=== PATIENT | female | born 1985 | race American Indian/Alaskan Native ===

== ENCOUNTER 2016-09-28 13:03 | Emergency (ER) | payer SELFPAY ==
[2016-09-28 13:15] VITALS: BP 100/66
[2016-09-28] MEDS ORDERED: BICILLIN L-A IM ONE (13:57)
--- NOTE | 2016-09-28 14:07 | Emergency Department Report ---
ED ENT HPI - General Chief complaint: Sore Throat Stated complaint: SORE THROAT Time Seen by Provider: 09/28/16 13:52 Source: patient Mode of arrival: Ambulatory Limitations: No Limitations - History of Present Illness Initial comments: PT c/o sore throat x 3 days. PT states the last time she was sick with strep throat, she felt like this. pt does report strep throat exposure. MD complaint: sore throat Onset/Timin -: Gradual, days(s) Location: throat Severity: severe Severity scale (0 -10): 8 Quality: sharp Consistency: constant Improves with: none Worsens with: swallowing, eating Associated Symptoms: pain with swallowing, sore throat. denies: fever, cough - Related Data Home Medications Medication Instructions Recorded Confirmed Last Taken No Known Home Medications [No 09/28/16 09/28/16 Unknown Reported Home Medications] Allergies Allergy/AdvReac Type Severity Reaction Status Date / Time No Known Allergies Allergy Verified 09/28/16 13:09 ED Dental HPI - General Chief complaint: Sore Throat Stated complaint: SORE THROAT Time Seen by Provider: 09/28/16 13:52 Source: patient Mode of arrival: Ambulatory Limitations: No Limitations - Related Data Home Medications Medication Instructions Recorded Confirmed Last Taken No Known Home Medications [No 09/28/16 09/28/16 Unknown Reported Home Medications] Allergies Allergy/AdvReac Type Severity Reaction Status Date / Time No Known Allergies Allergy Verified 09/28/16 13:09 ED Review of Systems ROS: Stated complaint: SORE THROAT Other details as noted in HPI Constitutional: denies: chills, fever ENT: ear pain (L ear pain ) Respiratory: denies: cough Gastrointestinal: denies: nausea, vomiting Genitourinary: denies: abnormal menses ED Past Medical Hx - Past Medical History Previous Medical History?: No - Surgical History Past Surgical History?: No - Social History Smoking Status: Never Smoker Substance Use Type: None - Medications Home Medications: Home Medications Medication Instructions Recorded Confirmed Last Taken Type No Known Home Medications [No 09/28/16 09/28/16 Unknown History Reported Home Medications] ED Physical Exam - General Limitations: No Limitations General appearance: alert, in no apparent distress - Head Head exam: Present: atraumatic, normocephalic, normal inspection - Eye Eye exam: Present: normal appearance, PERRL, EOMI. Absent: conjunctival injection - ENT ENT exam: Present: mucous membranes moist, TM's normal bilaterally, normal external ear exam - Expanded ENT Exam Expanded Throat exam: Positive: tonsillar erythema, tonsillomegaly. Negative: tonsillar exudate, R peritonsillar mass, L peritonsillar mass - Neck Neck exam: Present: normal inspection, tenderness, full ROM, lymphadenopathy ( ant cervical ) - Respiratory Respiratory exam: Present: normal lung sounds bilaterally. Absent: respiratory distress - Cardiovascular Cardiovascular Exam: Present: normal rhythm, tachycardia - Extremities Exam Extremities exam: Present: normal inspection, full ROM - Back Exam Back exam: Present: normal inspection, full ROM - Neurological Exam Neurological exam: Present: alert, oriented X3, normal gait - Psychiatric Psychiatric exam: Present: normal affect, normal mood - Skin Skin exam: Present: warm, dry, intact, normal color ED Course Vital Signs 09/28/16 09/28/16 13:11 14:10 Temperature 99.2 F Pulse Rate 119 H Respiratory 18 16 Rate Blood Pressure 100/66 O2 Sat by Pulse 100 Oximetry - Reevaluation(s) Reevaluation #1: 09/28/16 14:10 PT aware of lab result. PT requesting antibiotic shot. - Pulse Oximetry Interpretation Digit-Finger Initial Pulse Oximetry Readin Actions Taken: none ED Medical Decision Making - Differential Diagnosis viral uri, strep pharyngitis Critical Care Time: No Critical care attestation.: If time is entered above; I have spent that time in minutes in the direct care of this critically ill patient, excluding procedure time. ED Disposition Clinical Impression: Strep pharyngitis Disposition: DISCHARGED TO HOME OR SELFCARE Is pt being admited?: No Does the pt Need Aspirin: No Condition: Stable Instructions: Strep Throat (ED) Additional Instructions: Rest, increase fluids Return to ED if worsening or concerns change your toothbrush Referrals: [facility] [Outside] - 3-5 Days [facility] [Outside] - 3-5 Days PRIMARY CAREMD [Primary Care Provider] - 3-5 Days KLEVER NUÑEZ MD [Staff Physician] - 3-5 Days Time of Disposition: 14:15
[2016-09-28] MEDS ORDERED: MOTRIN PO ONE (14:08)
== END 2016-09-28 14:41 | disposition home or self-care (01) ==
LOC: ED 13:03
DX: J02.0 Streptococcal pharyngitis (principal)
CPT/HCPCS: 87430; 96372; 99282; J0561

== ENCOUNTER 2017-11-26 16:26 | Emergency (ER) | payer SELFPAY ==
[2017-11-26 17:59] LABS: Bilirubin,Urine NEG (Negative); Blood,Urine NEG (Negative); Color,Urine Yellow (Yellow); Protein,Urine <15 mg/dL mg/dL (Negative); Urobilinogen,Urine < 2.0 mg/dL (<2.0)
[2017-11-26 18:01] LABS: HCG Qualitative,Urine Negative (Negative)
[2017-11-26 19:39] LABS: Alanine Aminotransferase 10 units/L (7-56); Albumin 4.7 g/dL (3.9-5); BUN/Creatinine Ratio 12; Blood Urea Nitrogen 6 mg/dL (7-17); Calcium 9.5 mg/dL (8.4-10.2); Hemolysis Index 12
[2017-11-26 19:41] LABS: Basophils % (Auto) 0.4 % (0.0-1.8); Eosinophils # (Auto) 0.1 K/mm3 (0.0-0.4); Eosinophils % (Auto) 1.5 % (0.0-4.3); Hematocrit 38.2 % (30.3-42.9); Hemoglobin 12.7 gm/dl (10.1-14.3); Lymphocytes # (Auto) 2.2 K/mm3 (1.2-5.4); Lymphocytes % (Auto) 41.8 % (13.4-35.0); Mean Corpuscular HGB Conc 33 % (30-34); Mean Corpuscular Hemoglobin 32 pg (28-32); Mean Corpuscular Volume 97 fl (79-97); Monocytes # (Auto) 0.3 K/mm3 (0.0-0.8); Monocytes % (Auto) 5.3 % (0.0-7.3); Platelet Count 239 K/mm3 (140-440); Red Blood Count 3.95 M/mm3 (3.65-5.03); Red Cell Distribution Width 14.4 % (13.2-15.2)
--- NOTE | 2017-11-26 21:10 | Emergency Department Report ---
ED Abdominal Pain HPI - General Chief Complaint: Abdominal Pain Stated Complaint: ABD PAIN Time Seen by Provider: 11/26/17 21:09 Source: patient, RN notes reviewed Mode of arrival: Ambulatory Limitations: No Limitations - History of Present Illness Initial Comments: This is a 31-year-old female, unknown to this provider previously, does not have a local primary care doctor, denies chronic medical conditions and history of abdominal surgeries. She presents to the ER with complaint of 2 days of pressure-like abdominal pain, which increases when she sits up, decreases with rest, and also increases with palpation. She describes it as "fluttering" in the bilateral lower quadrants. She also endorses dysuria. She is defecating normally, and passing gas normally. She denies headache, neck pain, chest pain, shortness of breath, sore throat. She denies recent sexual contacts. To me she makes no complaint of vaginal discharge. MD Complaint: abdominal pain -: Gradual Location: LLQ, RLQ, suprapubic Radiation: none Migration to: no migration Quality: cramping, other (per hpi) Consistency: intermittent Improves With: other (per hpi) Worsens With: other (per hpi) Associated Symptoms: dysuria. denies: nausea, vomiting, diarrhea, fever, chills , constipation, hematemesis, hematochezia, melena, hematuria, anorexia, syncope - Related Data Previous Rx's Medication Instructions Recorded Last Taken Type Acetaminophen [Tylenol Arthritis] 650 mg PO Q6HR PRN #30 tablet.er 11/26/17 Unknown Rx Ibuprofen [Motrin] 600 mg PO Q8H PRN #30 tablet 11/26/17 Unknown Rx Ondansetron [Zofran Odt] 4 mg PO Q8HR PRN #20 tab.rapdis 11/26/17 Unknown Rx Allergies Allergy/AdvReac Type Severity Reaction Status Date / Time No Known Allergies Allergy Verified 09/28/16 13:09 ED Review of Systems ROS: Stated complaint: ABD PAIN Other details as noted in HPI Comment: All other systems reviewed and negative ED Past Medical Hx - Past Medical History Previous Medical History?: No - Surgical History Past Surgical History?: No - Social History Smoking Status: Never Smoker Substance Use Type: None - Medications Home Medications: Home Medications Medication Instructions Recorded Confirmed Last Taken Type Acetaminophen [Tylenol Arthritis] 650 mg PO Q6HR PRN #30 tablet.er 11/26/17 Unknown Rx Ibuprofen [Motrin] 600 mg PO Q8H PRN #30 tablet 11/26/17 Unknown Rx Ondansetron [Zofran Odt] 4 mg PO Q8HR PRN #20 tab.rapdis 11/26/17 Unknown Rx ED Physical Exam - General Limitations: No Limitations General appearance: alert, in no apparent distress - Head Head exam: Present: atraumatic, normocephalic - Eye Eye exam: Present: normal appearance, EOMI. Absent: nystagmus - ENT ENT exam: Present: normal exam, normal orophraynx, mucous membranes moist, normal external ear exam - Neck Neck exam: Present: normal inspection, full ROM. Absent: tenderness, meningismus - Respiratory Respiratory exam: Present: normal lung sounds bilaterally. Absent: respiratory distress - Cardiovascular Cardiovascular Exam: Present: regular rate, normal rhythm, normal heart sounds. Absent: bradycardia, tachycardia, irregular rhythm, systolic murmur, diastolic murmur, rubs, gallop - GI/Abdominal GI/Abdominal exam: Present: soft, tenderness, normal bowel sounds, other (there is suprapubic and right lower quadrant tenderness. There is no rebound, guarding or peritoneal signs.). Absent: distended, rebound, rigid, pulsatile mass - External exam: Present: normal external exam. Absent: lesions, lacerations Speculum exam: Present: normal speculum exam. Absent: cervical discharge, vaginal bleeding Bi-manual exam: Present: normal bi-manual exam, other (escorted by nurse Lily Tran). Absent: cervical motion tendernes, adnexal tenderness, adnexal mass, uterine enlargement, uterine tenderness - Extremities Exam Extremities exam: Present: normal inspection, full ROM, normal capillary refill , other (2+ pulses noted in the bilateral upper, lower extremities. Compartments soft. No long bony tenderness. The pelvis is stable.). Absent: tenderness, pedal edema, joint swelling, calf tenderness - Back Exam Back exam: Present: normal inspection, full ROM. Absent: tenderness, CVA tenderness (R), paraspinal tenderness, vertebral tenderness - Neurological Exam Neurological exam: Present: alert, oriented X3, CN II-XII intact, normal gait, other (Extraocular movements intact. Tongue midline. No facial droop. Facial sensation intact to light touch in the V1, V2, V3 distribution bilaterally. 5 and 5 strength in 4 extremities.. Sensation is intact to light touch in 4 extremities.). Absent: motor sensory deficit - Psychiatric Psychiatric exam: Present: normal affect, normal mood - Skin Skin exam: Present: warm, dry, intact, normal color. Absent: rash ED Course Vital Signs 11/26/17 11/26/17 16:39 21:45 Temperature 98.4 F 98.5 F Pulse Rate 61 70 Respiratory 18 20 Rate Blood Pressure 98/58 Blood Pressure 106/62 [Left] O2 Sat by Pulse 100 100 Oximetry - Reevaluation(s) Reevaluation #1: 11/26/17 23:04 Differential diagnosis, including but not limited to: Appendicitis, inflammatory bowel disease, pelvic inflammatory disease, ovarian cyst, endometriosis, ovarian torsion, constipation, functional abdominal pain Assessment and Plan: 31-year-old female with a complaint of lower abdominal pain. She is afebrile with reassuring vital signs, and mild lower abdominal tenderness. There is no gynecologic discharge and there is no gynecologic tenderness. Therefore, clinically, I highly doubt pelvic inflammatory disease, ovarian cyst, endometriosis, or ovarian torsion. Her wet prep is not consistent with infectious etiology, and her urinalysis is not consistent with infectious etiology. A CT scan of the abdomen and pelvis is pending, as well as a pelvic ultrasound. We'll reassess once her imaging has resulted. Reevaluation #2: 11/27/17 00:53 Ultrasound is negative for ovarian torsion. Belly soft on repeat exam. CT scan of the abdomen and pelvis is negative for acute disease. The patient will be discharged at this time. She feels improved. Return precautions are reviewed. ED Medical Decision Making - Lab Data Result diagrams: 11/26/17 19:08 11/26/17 19:08 Vital Signs 11/26/17 11/26/17 16:39 21:45 Temperature 98.4 F 98.5 F Pulse Rate 61 70 Respiratory 18 20 Rate Blood Pressure 98/58 Blood Pressure 106/62 [Left] O2 Sat by Pulse 100 100 Oximetry Lab Results 11/26/17 11/26/17 11/26/17 Range/Units 17:25 19:08 19:08 WBC 5.3 (4.5-11.0) K/mm3 RBC 3.95 (3.65-5.03) M/mm3 Hgb 12.7 (10.1-14.3) gm/dl Hct 38.2 (30.3-42.9) % MCV 97 (79-97) fl MCH 32 (28-32) pg MCHC 33 (30-34) % RDW 14.4 (13.2-15.2) % Plt Count 239 (140-440) K/mm3 Lymph % (Auto) 41.8 H (13.4-35.0) % Bowman % (Auto) 5.3 (0.0-7.3) % Eos % (Auto) 1.5 (0.0-4.3) % Baso % (Auto) 0.4 (0.0-1.8) % Lymph # 2.2 (1.2-5.4) K/mm3 Bowman # 0.3 (0.0-0.8) K/mm3 Eos # 0.1 (0.0-0.4) K/mm3 Baso # 0.0 (0.0-0.1) K/mm3 Seg Neutrophils % 51.0 (40.0-70.0) % Seg Neutrophils # 2.7 (1.8-7.7) K/mm3 Sodium 140 (137-145) mmol/L Potassium 3.8 (3.6-5.0) mmol/L Chloride 103.3 (98-107) mmol/L Carbon Dioxide 25 (22-30) mmol/L Anion Gap 16 mmol/L BUN 6 L (7-17) mg/dL Creatinine 0.5 L (0.7-1.2) mg/dL Estimated GFR > 60 ml/min BUN/Creatinine Ratio 12 % Glucose 69 (65-100) mg/dL Calcium 9.5 (8.4-10.2) mg/dL Total Bilirubin 0.50 (0.1-1.2) mg/dL AST 21 (5-40) units/L ALT 10 (7-56) units/L Alkaline Phosphatase 62 (35-129) units/L Total Protein 7.9 (6.3-8.2) g/dL Albumin 4.7 (3.9-5) g/dL Albumin/Globulin Ratio 1.5 % Urine Color Yellow (Yellow) Urine Turbidity Clear (Clear) Urine pH 7.0 (5.0-7.0) Ur Specific Caldwell 1.008 (1.003-1.030) Urine Protein <15 mg/dl (Negative) mg/dL Urine Glucose (UA) Neg (Negative) mg/dL Urine Ketones Neg (Negative) mg/dL Urine Blood Neg (Negative) Urine Nitrite Neg (Negative) Urine Bilirubin Neg (Negative) Urine Urobilinogen < 2.0 (<2.0) mg/dL Ur Leukocyte Esterase Neg (Negative) Urine WBC (Auto) 2.0 (0.0-6.0) /HPF Urine RBC (Auto) 1.0 (0.0-6.0) /HPF U Epithel Cells (Auto) 3.0 (0-13.0) /HPF Urine HCG, Qual Negative (Negative) - Radiology Data Radiology results: pending, report reviewed, image reviewed Critical care attestation.: If time is entered above; I have spent that time in minutes in the direct care of this critically ill patient, excluding procedure time. ED Disposition Clinical Impression: Abdominal pain Disposition: TO HOME OR SELFCARE Is pt being admited?: No Does the pt Need Aspirin: No Condition: Good Instructions: Abdominal Pain (ED) Additional Instructions: Cultures were sent today, results will be available in the next 3-5 days. Take the pain medication, nausea medication as needed/directed. Follow-up with her primary care doctor or [facility] ADMINISTRATIVE ASSISTANT physician within the next 5-7 days. Return to the ER right away with new pain, worsened pain, migration of pain, fevers, chills, lethargy, irritability, confusion, projectile vomiting, inability to tolerate liquid feeds, or new, worsening or different symptoms which were not present on the initial ER evaluation. Have a private doctor or HEALTHCARE ADMINISTRATIVE ASSISTANT doctor contact the medical records department to obtain culture results. Prescriptions: Acetaminophen [Tylenol Arthritis] 650 mg PO Q6HR PRN #30 tablet.er PRN Reason: Pain Ibuprofen [Motrin] 600 mg PO Q8H PRN #30 tablet PRN Reason: Pain Ondansetron [Zofran Odt] 4 mg PO Q8HR PRN #20 tab.rapdis PRN Reason: Nausea Referrals: PRIMARY CARE, [Primary Care Provider] - 3-5 Days [facility] [Provider Group] - 3-5 Days [facility] [Provider Group] - 3-5 Days [facility] [Provider Group] - 3-5 Days Forms: Work/School Release Form(ED)
[2017-11-26] MEDS ORDERED: NACL 0.9% 500 ML 500 ML IV ONE (21:21)
[2017-11-26] MEDS ORDERED: TORADOL IV ONE (21:21)
[2017-11-26 21:46] VITALS: BP 106/62
--- NOTE | 2017-11-26 23:08 | Cat Scan Report ---
FINAL REPORT EXAM: CT ABDOMEN PELVIS W CON HISTORY: lower abd pain TECHNIQUE: CT abdomen and pelvis with intravenous contrast PRIORS: None. FINDINGS: No acute abnormality identified in the lung bases. No focal abnormality identified within the liver parenchyma. The spleen demonstrates normal size and attenuation. No pancreatic abnormalities seen. The kidneys demonstrate symmetric contrast enhancement. No evidence of hydronephrosis. The adrenal glands are unremarkable Abdominal aorta is normal in caliber. No pathologically enlarged lymph nodes are identified. No signs of free fluid or free air No evidence of small bowel dilatation. Colon is nondistended. No pericolonic inflammatory change. The appendix is identified and is unremarkable. Urinary bladder is unremarkable. IMPRESSION: Negative. No acute abnormalities seen
--- NOTE | 2017-11-27 00:44 | Ultrasound Report ---
FINAL REPORT PROCEDURE: US TRANSVAGINAL TECHNIQUE: Real-time transvaginal sonography in multiple planes of the pelvis was performed with image documentation. Grayscale, color flow Doppler imaging and velocity spectral waveform analysis of the ovaries was employed (duplex imaging). [place] 7[address] [place] [id number] HISTORY: lower abd pain COMPARISON: No prior studies are available for comparison. FINDINGS: UTERUS Size: 9 x 4.7 x 5.8 cm. Endometrial thickness: 3.2 mm. 9 millimeter incidental endometrial cyst. Orientation: anteverted. Cervix: Normal. Fibroids/masses: None. RIGHT Ovary: 3.4 x 2.2 x 2.6 cm. Appearance: There is a 1.2 centimeter cyst.. Doppler images: Normal spectral waveforms and color flow. The systolic and diastolic velocities are within normal limits. LEFT Ovary: 3.1 x 2.8 x 2.8 cm. Appearance: There is a 2.1 centimeters cyst.. Doppler images: Normal spectral waveforms and color flow. The systolic and diastolic velocities are within normal limits. Pelvic fluid: None. IMPRESSION: Normal uterus and ovaries.
--- NOTE | 2017-11-27 00:45 | Ultrasound Report ---
FINAL REPORT PROCEDURE: US PELVIS DUPLEX DOPPLER COMP TECHNIQUE: Real-time transabdominal sonography in multiple planes of the pelvis was performed with image documentation. Grayscale, color flow Doppler imaging and velocity spectral waveform analysis of the ovaries was employed (duplex imaging). HISTORY: lower abd pain COMPARISON: No prior studies are available for comparison. FINDINGS: UTERUS Size: 9 x 4.7 x 5.8 cm. Endometrial thickness: 3.2 mm. 9 millimeter incidental endometrial cyst. Orientation: anteverted. Cervix: Normal. Fibroids/masses: None. RIGHT Ovary: 3.4 x 2.2 x 2.6 cm. Appearance: There is a 1.2 centimeter cyst.. Doppler images: Normal spectral waveforms and color flow. The systolic and diastolic velocities are within normal limits. LEFT Ovary: 3.1 x 2.8 x 2.8 cm. Appearance: There is a 2.1 centimeters cyst.. Doppler images: Normal spectral waveforms and color flow. The systolic and diastolic velocities are within normal limits. Pelvic fluid: None. IMPRESSION: Normal uterus and ovaries.
== END 2017-11-27 01:20 | disposition home or self-care (01) ==
LOC: ED 16:26
DX: R10.30 Lower abdominal pain, unspecified (principal)
CPT/HCPCS: 36415; 74177; 76830; 80053; 81001; 81025; 85025; 87210; 87591; 93975; 96374; 99284; J1885; J7040; Q9967